=== PATIENT | male | born 1975 | race Caucasian/White ===

== ENCOUNTER 2021-12-16 11:13 | Emergency (ER) | payer OTHER, SELFPAY ==
--- NOTE | ~2021-12-16 | CT_ITS ---
EXAMINATION: CT SOFT TISSUE NECK WITH CONTRAST CLINICAL INFORMATION: Sore throat for 5 months. Hemoptysis. COMPARISON: Thyroid ultrasound from 06/11/2010. TECHNIQUE: Multidetector helical imaging was performed in the axial plane following the administration of 71 mL of Omnipaque 350 intravenous contrast (total utilized for concurrent CT chest and neck). Multiple axial reformats and coronal/sagittal reconstructions were created the technologist workstation for review. This CT examination was performed using dose optimization techniques as appropriate, variously including the following: *Automated exposure control. *Adjustment of mA and/or kV according to patient size (this includes techniques or standardized protocols for targeted exams where dose is matched to indication/reason for exam; i.e. extremities or head). *Use of iterative reconstruction technique. DLP: 1163 mGy-cm FINDINGS: No significant cutaneous thickening or subcutaneous inflammation. No discrete fluid collection within the deep tissues of the neck. The premaxillary, retromaxillary, pterygopalatine fossa, orbital apical, parapharyngeal, and prelaryngeal adipose tissue is maintained. Normal appearance of the parotid, submandibular, and thyroid glands. Scattered subcentimeter lymph nodes bilaterally, none of which are pathologically enlarged or abnormally enhancing. Beam hardening artifact from the patient's dental amalgam limits evaluation of the oropharynx. Within this limitation, there is no demonstrated focal lesion or abnormal enhancement within the intrinsic tissues of the tongue or floor of mouth. There is moderate prominence of the palatine tonsils bilaterally as well as the pharyngeal mucosa in the glossopharyngeal sulci (slightly more so on the left than the right). No definitively demonstrated focal lesion or collection. Normal mucosal contours of the larynx without abnormal enhancement. Normal appearance of the hyoid bone, thyroid cartilage, or cartilaginous trachea. The airways remains widely patent. No radiopaque foreign bodies. The atlantooccipital and atlantoaxial articulations remain well aligned. Straightening of the normal cervical lordosis. Otherwise, there is anatomic alignment of the vertebral bodies and posterior elements. No evidence of acute fracture or subluxation of the cervical spine. The vertebral body heights are maintained. Moderate degenerative disc disease from C2-C4 and C5-C7 with disc-osteophyte complex formation. Facet and uncovertebral joint arthropathy leads to osseous encroachment on the neural foramina from C2-C7. No evidence of epidural collection. There is no prevertebral soft tissue swelling. Normal opacification of the cervical arterial and venous structures. The visualized portion of the skull base is without significant abnormalities. Mild mucosal thickening the paranasal sinuses. The mastoid air cells and middle ear cavities are clear. No demonstrated significant periapical odontogenic disease. Moderate degenerative arthropathy of the temporomandibular joints. CT Upper Chest: The visualized lung apices and upper mediastinum are within normal limits. CT/CT soft tissue neck w con IMPRESSION: 1. Nonspecific mild prominence of the palatine tonsils and mucosal surfaces of the left greater than right glossotonsillar sulci. No definitively demonstrated discrete underlying lesion or collection. However, if clinically indicated, this could be further evaluated with direct endoscopic visualization. 2. No additional focal lesion, collection, pathologically enlarged adenopathy, or abnormal enhancement within the soft tissues of the neck.
--- NOTE | ~2021-12-16 | CT_ITS ---
EXAMINATION: CT ANGIOGRAM OF THE CHEST WITH AND WITHOUT CONTRAST (CT PULMONARY ANGIOGRAM FOR PE) CLINICAL INFORMATION: Reason for Exam hemoptysis, throat pain x5 months COMPARISON: Previous chest x-ray from earlier the same day TECHNIQUE: Prior to contrast administration, noncontrast localization images were obtained. Subsequently, multidetector volumetric imaging was performed from the thoracic inlet to below the diaphragms following the administration of 85 mL Omnipaque 350 intravenous contrast. No contrast reaction reported Sagittal, coronal, and MIP oblique sagittal reformatted images were obtained on the CT workstation, uploaded to PACS, and reviewed. This CT examination was performed using dose optimization techniques as appropriate, variously including the following: *Automated exposure control *Adjustment of mA and/or kV according to patient size (this includes techniques or standardized protocols for targeted exams where dose is matched to indication/reason for exam; i.e. extremities or head) *Use of iterative reconstruction technique Total exam dose-length product 569 mGy-cm FINDINGS: QUALITY OF STUDY/CONTRAST BOLUS: Satisfactory. PULMONARY ARTERIES: No central or segmental pulmonary emboli. THORACIC AORTA: No aneurysm or dissection. LUNG: No focal consolidation, nodules or masses. PLEURA: No pleural effusion or pneumothorax. Is a small left posterior medial diaphragmatic hernia containing fat. MEDIASTINUM: Normal heart size. No pericardial effusion. No hilar or mediastinal lymphadenopathy. No evidence of septal bowing or right heart strain. CHEST WALL/AXILLA: No axillary or internal mammary lymphadenopathy. OSSEOUS STRUCTURES: No acute or suspicious osseous abnormality. There are degenerative changes of the spine. UPPER ABDOMEN: Unremarkable. No reflux of contrast into the hepatic veins to suggest elevated right heart pressures. CT/CT angio chest PE protocol IMPRESSION: Unremarkable exam. No evidence of pulmonary embolism. VTE: negative
--- NOTE | ~2021-12-16 | XR_ITS ---
EXAMINATION: XR CHEST CLINICAL INFORMATION: Sore throat. Hemoptysis. COMPARISON: None TECHNIQUE: Frontal view of the chest was obtained. FINDINGS: The cardiac and mediastinal contours are normal. The lungs are clear. There is slight elevation of the right hemidiaphragm. There is no pleural effusion or pneumothorax. Visualized bony structures are unremarkable. XR/XR chest 1V IMPRESSION: Slightly elevated right hemidiaphragm otherwise unremarkable exam. If hemoptysis persists, follow-up chest CT or bronchoscopy should be considered.
[2021-12-16 11:18] VITALS: BP 141/82; PULSE 89; RESP 20; TEMP 36.3; O2SAT 96; BMI 29.8
--- NOTE | 2021-12-16 11:28 | ECG_ITS ---
Test Reason : SOB Blood Pressure : / mmHG Vent. Rate : 078 BPM Atrial Rate : 078 BPM P-R Int : 186 ms QRS Dur : 110 ms QT Int : 390 ms P-R-T Axes : 049 -06 020 degrees QTc Int : 444 ms Normal sinus rhythm Normal ECG When compared with ECG of 07-MAR-2014 21:16, No significant change was found Referred By: Generic ED Physician Electronically Signed By:Ammon Ziegler
[2021-12-16 11:45] LABS: MANUAL DIFF FLAG NO
[2021-12-16 11:47] LABS: Basophils Absolute Auto 0.1 X10*3/uL (0.0-0.2); Basophils Percent Auto 1.1 % (0-2); Eosinophils Absolute Auto 0.1 X10*3/uL (0.0-0.4); Eosinophils Percent Auto 1.6 % (0-4); Hematocrit 44.4 % (42.0-52.0); Hemoglobin 15.1 g/dl (14.0-18.0); Imm Gran Abs Auto 0.01 X10*3/uL (0.00-0.03); Imm Gran Pct Auto 0.2 % (0.0-0.4); Lymphocytes Absolute Auto 2.4 X10*3/uL (1.2-4.9); Lymphocytes Percent Auto 43.5 % (20-40); Mean Corpuscular Hemoglobin 28.9 pg (27.0-33.0); Mean Corpuscular Volume 84.9 fL (80.0-98.0); Mean Platelet Volume 8.9 fL (9.4-12.4); Monocytes Absolute Auto 0.4 X10*3/uL (0.1-1.2); Monocytes Percent Auto 7.3 % (2-11); Neutrophils Absolute Auto 2.5 x10*3/uL (2.0-8.3); Neutrophils Percent Auto 46.3 % (45-73); Platelet Count 233 X10*3/uL (160-400); Red Blood Count 5.23 X10*6/uL (4.60-5.80); Red Cell Distribution Width 13.6 % (11.0-16.0); White Blood Count 5.5 X10*3/uL (4.8-10.8)
[2021-12-16 11:59] LABS: D Dimer High Sensitivity < 150 NG/ML
[2021-12-16 12:02] LABS: Anion Gap 12 (12-20); Blood Urea Nitrogen 13 mg/dL (9-16); Calcium 9.7 mg/dL (8.4-10.2); Carbon Dioxide 28 mmol/L (22-29); Chloride 106 mmol/L (96-108); Creatinine Clr Calc Pharmacy 99.9; Estimated Glomerular Filt Rate > 60; Glucose Random 83 mg/dL (60-115); Potassium 4.1 mmol/L (3.3-5.1); Sodium 142 mmol/L (135-145)
[2021-12-16 12:09] LABS: Troponin-I High Sensitivity 19.5 ng/L (<3.5-35.0)
--- NOTE | 2021-12-16 14:23 | ED.GENADULT ---
HPI - General Adult General Chief complaint: General Medical Stated complaint: SOB/Coughing up blood Time Seen by Provider: 12/16/21 14:13 Source: patient Mode of arrival: ambulatory Limitations: no limitations History of Present Illness HPI narrative: 46 y/o male with history of migraines, hx aseptic meningitis, who presents to the ER with hemoptysis since yesterday. He reports sputum is bloody streaked that started yesterday and occurred again this morning. It also occurred 3-4 weeks ago and self resolved but was only small specks of blood. He described bright red blood in his sputum, no clots. Non-smoker. No personal or family history of PE or lung cancer. Patient also reports that he has had a sore throat for the last 5 months with discomfort in his neck when he burps and sometimes when he eats. No difficulty eating or drinking. No palpable mass. MD complaint: hemoptysis Onset (ago): week(s) Location: neck and chest Radiation: non-radiation Severity: mild Pain Consistency: intermittent and now resolved Relieving factors: none Exacerbating factors: none Associated symptoms: cough Related Data Previous Rx's Medication Instructions Recorded azithromycin 250 mg tablet See Rx Instructions .ROUTE 12/16/21 (Zithromax Z-Pj) .COMPLEX #6 tab Allergies Allergy/AdvReac Type Severity Reaction Status Date / Time No Known Allergies Allergy Unverified 05/22/20 16:14 [No Known Allergies*] Review of Systems Review of Systems: Constitutional: No Fever, No Chills ENT/Mouth: + sore throat, + Rhinorrhea, No Swallowing Difficulty Cardiovascular: No Chest Pain, + SOB, No Orthopnea, No Edema Respiratory: + Cough, No Sputum, No Wheezing, No dyspnea, + Hemoptysis Gastrointestinal: No Nausea, No Vomiting, No Diarrhea, No abdominal Pain, No Hematochezia, No Melena Genitourinary: No Hematuria Musculoskeletal: No joint pain, No Myalgias Skin: No Skin Lesions, No rash Neuro: No Weakness, No Numbness, No Dizziness, No Headache Psych: No Anxiety/Panic Heme/Lymph: No Bruising, No Lymphadenopathy PMFSH Past Medical History Medical History (Updated 12/16/21 @ 17:49 by TIFFANIE Morelos) Positive TB test Social History Social History Advance Directives: No Advance Directives Information Provided: No Physical Exam ED Vital Signs: Vital Signs - 24 hr 12/16/21 11:18 12/16/21 14:30 12/16/21 17:12 Temperature 97.3 F 98.3 F Pulse Rate 89 74 78 Respiratory Rate 20 17 17 Blood Pressure 141/82 H 143/92 H 139/86 Pulse Oximetry 96 97 99 BMI result Body Mass Index 29.8 Appearance: Alert. Oriented X3. No acute distress. Eyes: Pupils equal, round and reactive to light. ENT: Pharynx normal. No evidence of epistaxis. Neck: Normal inspection. Neck supple. CVS: Normal heart rate and rhythm. Pulses normal. Respiratory: No respiratory distress. Breath sounds normal. Abdomen: Soft and nontender. +BS x4 Skin: Skin warm and dry. Normal skin color. Normal skin turgor. No rashes. Extremities: No lower extremity edema. No calf tenderness. Neuro: Oriented X 3. No motor deficit. No sensory deficit. Course Course Course Narrative: 46-year-old male presenting to the ER with intermittent hemoptysis for the last couple of weeks. Recurrence again started yesterday with worsening symptoms including mild shortness of breath as well. He also has sore throat for the last 5 months. He has no lung cancer risk factors and no PE risk factors. He is not tachycardic or hypoxic. He has no gross or massive hemoptysis here. None in the last several hours. Will get labs and CT scans for further evaluation. Reevaluation(s) Reevaluation #1: CTA is negative for PE or pulmonary consolidation. Awaiting read on CT soft tissue neck - [facility] in [place] called and will post results now. Procedures EJ/Peripheral Line Arm R: Time Out Performed: No Skin Cleansed in Sterile Fashion: Yes Size (gauge): 20 IV Secured and Dressing Applied: Yes Patient Tolerated Procedure: well and no complications Medical Decision Making Lab Data Result diagrams: 12/16/21 11:36 12/16/21 11:36 Labs: Lab Results 12/16/21 12/16/21 12/16/21 Range/Units 11:36 11:36 11:36 WBC 5.5 (4.8-10.8) X10*3/uL RBC 5.23 (4.60-5.80) X10*6/uL Hgb 15.1 (14.0-18.0) g/dl Hct 44.4 (42.0-52.0) % MCV 84.9 (80.0-98.0) fL MCH 28.9 (27.0-33.0) pg MCHC 34.0 (31.0-36.0) g/dl RDW 13.6 (11.0-16.0) % Plt Count 233 (160-400) X10*3/uL MPV 8.9 L (9.4-12.4) fL Immature Gran % (Auto) 0.2 (0.0-0.4) % Neut % (Auto) 46.3 (45-73) % Lymph % (Auto) 43.5 H (20-40) % [place] % (Auto) 7.3 (2-11) % Eos % (Auto) 1.6 (0-4) % Baso % (Auto) 1.1 (0-2) % Lymph # (Auto) 2.4 (1.2-4.9) X10*3/uL [place] # (Auto) 0.4 (0.1-1.2) X10*3/uL Eos # (Auto) 0.1 (0.0-0.4) X10*3/uL Baso # (Auto) 0.1 (0.0-0.2) X10*3/uL Abs Immat Gran (auto) 0.01 (0.00-0.03) X10*3/uL Absolute Neuts (auto) 2.5 (2.0-8.3) x10*3/uL Absolute Nucleated RBC 0.000 (0.0-0.012) X10*3/uL Nucleated RBC % (auto) 0.0 (0.0-0.2) /100WBC D-Dimer High Sensitivty NG/ML Sodium 142 (135-145) mmol/L Potassium 4.1 (3.3-5.1) mmol/L Chloride 106 (96-108) mmol/L Carbon Dioxide 28 (22-29) mmol/L Anion Gap 12 (12-20) BUN 13 (9-16) mg/dL Creatinine 1.13 (0.5-1.4) mg/dL Estim Creat Clear Calc 99.9 Estimated GFR > 60 Random Glucose 83 (60-115) mg/dL Calcium 9.7 (8.4-10.2) mg/dL Troponin I High Sens 19.5 (<3.5-35.0) ng/L 12/16/21 Range/Units 11:36 WBC (4.8-10.8) X10*3/uL RBC (4.60-5.80) X10*6/uL Hgb (14.0-18.0) g/dl Hct (42.0-52.0) % MCV (80.0-98.0) fL MCH (27.0-33.0) pg MCHC (31.0-36.0) g/dl RDW (11.0-16.0) % Plt Count (160-400) X10*3/uL MPV (9.4-12.4) fL Immature Gran % (Auto) (0.0-0.4) % Neut % (Auto) (45-73) % Lymph % (Auto) (20-40) % [place] % (Auto) (2-11) % Eos % (Auto) (0-4) % Baso % (Auto) (0-2) % Lymph # (Auto) (1.2-4.9) X10*3/uL [place] # (Auto) (0.1-1.2) X10*3/uL Eos # (Auto) (0.0-0.4) X10*3/uL Baso # (Auto) (0.0-0.2) X10*3/uL Abs Immat Gran (auto) (0.00-0.03) X10*3/uL Absolute Neuts (auto) (2.0-8.3) x10*3/uL Absolute Nucleated RBC (0.0-0.012) X10*3/uL Nucleated RBC % (auto) (0.0-0.2) /100WBC D-Dimer High Sensitivty < 150 NG/ML Sodium (135-145) mmol/L Potassium (3.3-5.1) mmol/L Chloride (96-108) mmol/L Carbon Dioxide (22-29) mmol/L Anion Gap (12-20) BUN (9-16) mg/dL Creatinine (0.5-1.4) mg/dL Estim Creat Clear Calc Estimated GFR Random Glucose (60-115) mg/dL Calcium (8.4-10.2) mg/dL Troponin I High Sens (<3.5-35.0) ng/L Critical Care Time Critical Care Time Critical Care Time: No Discharge Plan Discharge Clinical Impression: Bronchitis, Hemoptysis Patient Disposition: Home, Self-Care Instructions: Acute Bronchitis (ED), Hemoptysis (ED) Additional Instructions: The CT scan of your lungs today did not show any blood clots or lesions. Take the prescribed antibiotic for acute bronchitis as this may be what is causing your bloody sputum. Recommend adding a humidifier to your bedroom at night. Follow up with your doctor as well as Pulmonology if bloody sputum persists. Name and number below. Prescriptions: New azithromycin [Zithromax Z-Pj] 250 mg tablet See Rx Instructions .ROUTE .COMPLEX Qty: 6 0RF Rx Instructions: take 500 mg today (day 1), then 250 mg for 4 days (days 2-5) Referrals: Malika Fontenot MD [Physician] - 1 week (intermittent hemoptysis, CTA negative. ) Stand Alone Forms: Work/School Release
[2021-12-16 14:30] VITALS: BP 143/92; PULSE 74; RESP 17; O2SAT 97
[2021-12-16] MEDS: iohexoL 350 MG/ML 100 ML INFUS..BTL IV (16:47)
[2021-12-16 17:12] VITALS: BP 139/86; PULSE 78; RESP 17; TEMP 36.8; O2SAT 99
== END 2021-12-16 19:17 | disposition home or self-care (01) ==
PROVIDERS: Emergency Provider Emergency Medicine; PCP Internal Medicine
DX: J40 Bronchitis, not specified as acute or chronic (principal); R06.02 Shortness of breath; R05.9 Cough, unspecified; R04.2 Hemoptysis; Z79.899 Other long term (current) drug therapy
CPT/HCPCS: 36415; 70491; 71045; 71275; 80048; 84484; 85025; 85379; 93005; 99284; Q9967

== ENCOUNTER 2022-02-02 09:15 | Outpatient (REF) | payer OTHER, SELFPAY ==
[2022-02-02 11:20] LABS: TSH reflex Free T4 0.85 uIU/mL (0.32-4.0)
[2022-02-02 11:26] LABS: Erythrocyte Sedimentation Rate 4 MM/HR (0-15)
[2022-02-03 15:37] LABS: Anti Nuclear Antibody Screen NEGATIVE (NEGATIVE)
[2022-02-04 23:06] LABS: Cyclic Citrullinated Peptide <16 UNITS
[2022-02-15 08:42] LABS: SARS COV2 IgG Negative
== END 2022-02-02 09:16 | disposition home or self-care (01) ==
LOC: HO.LAB 09:15
PROVIDERS: PCP Internal Medicine; Visit Provider Hospitalist
DX: R00.0 Tachycardia, unspecified (principal); R06.00 Dyspnea, unspecified; R07.89 Other chest pain; G47.33 Obstructive sleep apnea (adult) (pediatric); R04.2 Hemoptysis; K21.9 Gastro-esophageal reflux disease without esophagitis; J44.9 Chronic obstructive pulmonary disease, unspecified
CPT/HCPCS: 36415; 82785; 84443; 85652; 86003; 86038; 86039; 86200; 86769; 94618; 99202

== ENCOUNTER 2022-03-18 09:21 | Outpatient (REF) | payer OTHER, SELFPAY ==
--- NOTE | ~2022-03-18 | FL_ITS ---
EXAMINATION: FL BARIUM SWALLOW CLINICAL INFORMATION: K21.9 - Gastro-esophageal reflux disease without esophagitis COMPARISON: CT soft tissue neck and CTA chest 12/16/2021. TECHNIQUE: Barium swallow examination is performed using fluoroscopic evaluation in addition to multiple fluoroscopic spot views, including cine images during swallowing. The patient is imaged both upright and prone and using both thick and thin sulfate along with effervescent granules. Fluoroscopy time: 0.9 minutes DAP: 6.456 Gycm2 Images: 24 FINDINGS: Swallowing function is normal and there is no aspiration. The cervical esophagus has no web or diverticulum or stricture. The cervical thoracic junction appears normal. The thoracic esophagus shows normal motility with no obstruction, stricture, or ulceration. There is no hiatal hernia or reflux seen despite use of provocative maneuvers (prone Valsalva and water siphon test, respectively). A cursory view of the upper abdomen shows no gastric outlet obstruction. FL/FL barium swallow IMPRESSION: Normal study.
== END 2022-03-18 09:22 | disposition home or self-care (01) ==
LOC: HO.XRAY 09:21
PROVIDERS: PCP Internal Medicine; Visit Provider Hospitalist
DX: K21.9 Gastro-esophageal reflux disease without esophagitis (principal)
CPT/HCPCS: 74220

== ENCOUNTER → 2022-03-23 14:26 | Outpatient (BNVA) | payer OTHER, SELFPAY | PROVIDERS: PCP Internal Medicine; Visit Provider Hospitalist | DX: R04.2 Hemoptysis (principal); R06.00 Dyspnea, unspecified; J02.9 Acute pharyngitis, unspecified; R07.89 Other chest pain; G47.33 Obstructive sleep apnea (adult) (pediatric); R00.0 Tachycardia, unspecified; J44.9 Chronic obstructive pulmonary disease, unspecified | CPT/HCPCS: 99212 ==

== ENCOUNTER 2022-04-27 10:00 | Outpatient (REF) | payer OTHER, SELFPAY ==
--- NOTE | 2022-04-27 15:12 | PFT_ITS ---
Forced vital capacity 89%, FEV1 85%. FEV1/FVC ratio is 75. FEF 1975 74% and MVV 87%. Postbronchodilator therapy, there is slight improvement in [id number]. Total lung capacity 93%. Residual volume 84%. Diffusion capacity 85%. CONCLUSION: Normal pulmonary function test, and there is no evidence of any obstructive or restrictive pulmonary disorder. Clinical correlation is recommended. MD TORIN Monge/ABIDA / [id number]
== END 2022-04-27 10:01 | disposition home or self-care (01) ==
LOC: HO.RESP 10:00
PROVIDERS: PCP Internal Medicine; Visit Provider Hospitalist
DX: R06.00 Dyspnea, unspecified (principal)
CPT/HCPCS: 94060; 94727; 94729

== ENCOUNTER → 2022-05-06 10:56 | Outpatient (REF) | payer OTHER, SELFPAY | LOC: HO.SL 10:56 | PROVIDERS: PCP Internal Medicine; Visit Provider Hospitalist | DX: G47.33 Obstructive sleep apnea (adult) (pediatric) (principal) | CPT/HCPCS: 95806 ==

== ENCOUNTER → 2022-07-06 13:07 | Outpatient (BNVA) | payer OTHER, SELFPAY | PROVIDERS: PCP Internal Medicine; Referring Provider Internal Medicine; Visit Provider Internal Medicine | DX: R06.02 Shortness of breath (principal); R07.89 Other chest pain; G47.33 Obstructive sleep apnea (adult) (pediatric) | CPT/HCPCS: 93005; 99202 ==

== ENCOUNTER → 2022-07-19 08:30 | Outpatient (REF) | payer OTHER, SELFPAY ==
--- NOTE | 2022-07-19 08:33 | CA_ITS ---
Transthoracic Echocardiogram Patient (Last, First, Middle): Juan Carlos Charles P Gender: Male Date of : 1975 Age: 46 Procedure Date: 07/19/2022 Procedure Type: Transthoracic Echocardiogram Location: OP Height: 182.88 cm Weight: 97.98 kg BSA: 2.20 m2 Heart Rate: bpm BP: 122 / 70 mmHg Grave Cleaner: Referring MD: Haris Day MD Bath Steward: Donald Mora MD Symptoms: R07.89 - Other chest pain Study Quality: Adequate ECG Rhythm: Sinus Conclusions: - Essentially normal study Findings Left Ventricle Normal left ventricular size, thickness, and systolic function. The visually estimated ejection fraction is between 55-60%. Diastolic function is normal for age. Right Ventricle Normal right ventricular cavity size and systolic function. Atria Both atria are normal in size. Interatrial shunt cannot be excluded. Aortic Valve Normal aortic valve structure and function. There is no aortic valve stenosis. There is no aortic valve regurgitation. Mitral Valve Normal mitral valve structure and function. There is trace mitral valve regurgitation. There is no mitral valve stenosis. Pulmonic Valve The pulmonic valve is likely normal. There is trace pulmonic valve regurgitation. Tricuspid Valve Normal tricuspid valve structure. There is trace tricuspid valve regurgitation. The right ventricular systolic pressure is normal. The right ventricular systolic pressure is 16 mmHg. Normal right atrial pressure. There is no evidence of pulmonary hypertension. Great Vessels All visible segments of the aorta are normal in size. The pulmonary artery was not well visualized. Venous The inferior vena cava is normal in size and collapses greater than 50% with inspiration. Pericardium/Pleural There is no evidence of pericardial effusion. Prior Study Comparison No prior study available for comparison. Recommendations, Care & Conclusions Recommend contrast study to evaluate intracardiac shunting. Measurements 2D Linear Measurements IVSd: 1.24 0.6-0.9/0.6-1.0 cm LVIDd: 5.03 3.9-5.3/4.2-5.9 cm LVIDd Index: 2.29 2.4-3.2/2.2-3.1 cm/m2 LVIDs: 2.92 2.0-3.6 cm LVPWd: 1.15 0.7-1.1 cm Ao Root: 3.30 2.1-3.5 cm LA Diam: 4.70 2.7-3.8/3.0-4.0 cm LAIDs Index: 2.14 1.5-2.3 cm/m2 LV Mass: 292.51 67-162/88-224 g LV Mass Index: 132.96 43-95/49-115 g/m2 LVOT Diam: 2.70 3.0+(-)1.3 cm 2D Systolic Function EF 4C: 53.10 >55% EF 2C: 61.20 >55% EF BiP: 56.90 >55% Mitral Valve MV Pk E: 0.49 MV PK A: 0.59 MV Decel Time: 163.00 E/A: 0.80 E'Lateral: 10.00 E'Medial: 7.72 E/E' Med: 6.30 E/E' Lat: 4.90 PHT: 48.00 MVA PHT: 4.58 Decel [place]: 3.01 Aortic Valve AoV Pk Tom: 1.29 AoV Mn Tom: 0.93 AoV VTI: 0.30 AoV Pk Grad: 7.00 Aov Mn Grad: 4.00 NATALIE Cont.VTI: 4.17 LVOT LVOT Pk Tom: 0.91 LVOT Mn Tom: 0.62 LVOT VTI: 0.22 LVOT Pk Grad: 3.00 LVOT Mn Grad: 2.00 LVOT Diam: 2.70 LVOT Area: 5.73 Diastolic Function MV Pk E: 0.49 MV Pk A: 0.59 E/A: 0.80 E'Medial: 7.72 E/E' Med: 6.30 E' Laterial: 10.00 E/E' Lat: 4.90 Right Ventricle TAPSE (mm): 27.20 TVS' Tom: 10.80 Tricuspid Valve TR Pk Tom: 1.81 TR Pk Grad: 13.00 RA Press: 3.00 RVSP: 16.00 Great Vessels Aorta Ao Root-2D: 3.30 2.0-3.7 cm Ao Asc: 2.80 2.1-3.4 cm Pulmonary Valve PV Pk Tom: 1.02 Peak PV Grad: 4.00 Updated in Other Vendor System with Status of Final Donald Mora MD electronically signed on 07/19/2022 5:50:10 PM with status of Final
== END ==
LOC: HO.CARD 08:30
PROVIDERS: PCP Internal Medicine; Visit Provider Internal Medicine
DX: R07.89 Other chest pain (principal)
CPT/HCPCS: 93306

== ENCOUNTER → 2022-09-21 14:11 | Outpatient (BNVA) | payer OTHER, SELFPAY | PROVIDERS: PCP Internal Medicine; Referring Provider Internal Medicine; Visit Provider Nurse Practitioner Family | DX: R06.02 Shortness of breath (principal); R07.89 Other chest pain | CPT/HCPCS: 99212 ==

== ENCOUNTER 2023-04-29 15:31 | Outpatient (AMB) | payer OTHER, SELFPAY ==
[2023-04-29 15:36] VITALS: PULSE 66; O2SAT 96; BMI 29.8
--- NOTE | 2023-04-29 15:36 | A.OFFVIS_ITS ---
Intake Vital Signs 04/29/23 15:36 Height 6 ft Weight 220 lb BMI 29.8 Pulse 66 Pulse Source Pulse Oximeter Pulse Oximetry (%) 96 Oxygen Delivery Method Room Air Intake Visit Reasons: Sleep Apnia / CPAP [employer] Assistant Required: No Allergies No Known Allergies [No Known Allergies*] Allergy (Verified 04/29/23 15:37) HPI HPI Comments History of Present Illness Details The patient is a 47-year-old gentleman with a known history of gastroesophageal reflux disease who apparently has been developing worsening shortness of breath and cough for the last year so. He has been evaluated for this condition. Apparently he did go to [place] where he did undergo pulmonary function studies. unfortunately, I do not have those results. The patient states that per report of what he was told there were borderline normal. In the meantime he continues to have significant dyspnea on exertion. He is in [place] [employer]. He is concerned because he has a hard time even walking half a mi because of the significant shortness of breath that is moderate severity. He also gets short of breath she is going up a flight of stairs. In addition to that he does describes chest pressure. He is wondering if he has asthma or if he will benefit from inhaler. Far as cardiac workup the patient states that more than 5 years ago he then underwent a stress test at [facility]. The patient has not had any recent evaluation. Further questioning he does have significant daytime drowsiness. His [place] score is elevated 12/24. His documented significant snoring and apneic episodes. The is concerned about his breathing at nighttime. The patient has not had a sleep study. Ultimately more recently the patient did developed significant sore throat and also coughing up blood. Happened few times and he was concerned so therefore he went to the [facility] ED. There he did undergo CT scan of the chest demonstrating no acute disease although his lungs appear to be hypo expanded and he did undergo a soft tissue neck CT scan demonstrating prominence of the tissues suggesting some degree of inflammation. The patient has not had an ENT evaluation. During the visit we did go for a 6 minute walk test. He did desaturate briefly down to 91% and his heart rate was above 100 throughout the ambulation up to 116 beats per minute. The patient did complaint of the heaviness in the chest area. He is also complaining or sore throat. He does take Nexium for the reflux disease. We did spend time talking about the reflux diet which seems to be an issue. At this point will consider promotility agents to help him with the reflux disease family be contributing to a lot of his symptoms. 03/23/2022 the patient is here for a pulmonary follow-up visit. He continues to be the same. Complaining of dyspnea on exertion [id number] severity. Although he denies any further hemoptysis. He still has oxygen sedation in his throat. Feels like he has a irritation or a growth. We did perform a barium swallow to see if there is any evidence of any abnormalities with his esophagus or in the proximal area. But, it appeared to be normal which is reassuring. Patient also use the short-acting beta agonist which appeared to be helpful but sometimes he was forgets to use it specially if he had to exercise. In view of his ongoing respiratory symptoms and a partial improvement with short-acting beta agonist will go ahead and switch him over to a combination inhaler. He will do well with Symbicort. Therefore I will send to the pharmacy. The patient also needs to undergo pulmonary function studies to address his respiratory capacity limitations. He also has daytime drowsiness with an elevated [place] score of 11/24. It was an issue scheduling his sleep study and it should be scheduled in the coming days. Again we looked at his CT scan of t he chest and no real abnormalities. the patient will benefit from an ENT evaluation though to further visualize the upper respiratory tract. 05/17/2022 the patient has a telephone visit today. The patient continues to be about the same. Continues to have some dyspnea on exertion. I did prescribe the Symbicort however it was never available at the pharmacy based on the fact that it was not covered. It is not clear when he did an get An alternative. I will send him Advair at this time. Appears that is covered. We can start using the the same way. He knows to rinse his mouth after he uses it. He continues to have daytime drowsiness. His [place] score is elevated 11/24. We did review his home sleep study. His AHI is were elevated to 23 events an hour consistent moderate to severe MIKE. The patient also has significant hypoxia with. Patient needs to start CPAP therapy [facility]. Will make arrangements with local [employer] company in order to do so. For his next visit he is going to bring his CPAP with him. go back to 04/29/2023 The patient is here for a pulmonary follow up visit. Doing very well with the APAP. Based on his download he does use it every night, more than 4 hours. HIs AHI is down to 1-2. The mask leakage is an issue. He has tried multiple masks and they still leak. I did provide him an airtouch f20 foam mask to try/ seem to fit well. He will continue the APAP as the therapy has been very effective and beneficial. Also, he had a fall at a pool hurting his ribs on the right side. moderate in seveirity worsened with coughing and deep breathing. He went to an urgent care and rib series was negative. I explained to him that still could have a small fx or bone contusion. He will continue the motrin and start lidoderm patch. If the pain worsens he is to call the office and/or seek urgent medical advice. If he is no better in the next 1 week her can also call to reassess. [facility] Medical History Chest pressure Dyspnea Hemoptysis Positive TB test Tachycardia Surgical History S/P correction of deviated nasal septum [place] teeth removed Family History Mother Arthritis Father No problems noted. Sister No problems noted. Social History Alcohol intake: current Alcohol intake frequency: a few times a month Patient Tobacco Use Status: Never used Tobacco Review of Systems Const Denies daytime sleepiness, Denies snoring and Denies stops breathing during sleep Eyes Denies change in vision ENT Reports sore throat and Reports throat swelling Card Reports chest pain, Denies dyspnea and Reports dyspnea on exertion Resp Denies cough, Denies hemoptysis, Reports pain on inspiration, Reports pain with cough, Denies dyspnea, Reports dyspnea on exertion, Denies snoring and Denies wheezing GI Reports dyspepsia and Reports heartburn Musc Reports no additional complaints Skin/Breast Denies rash Neuro Reports no additional complaints Aller/Immun Reports throat swelling and Denies wheezing Physical Exam Vital Signs: Last Vital Signs Pulse 66 08/25/23 15:36 Pulse Ox 96 04/29/23 15:36 Oxygen Delivery Method Room Air 04/29/23 15:36 BMI result Body Mass Index 29.8 Const General: alert Neck Neck: Yes normal visual inspection, Yes full ROM and Yes no lymphadenopathy Chest Chest palpation & inspection: tenderness rib (right side) Resp Auscultation: diminished lung sounds Cardio Rate: regular rate Rhythm: regular rhythm Heart sounds: S1 normal heart sound present and S2 normal heart sound present GI Palpation (GI): Soft to palpation and nontender Auscultation: normal bowel sounds Skin General skin exam: rashes and/or lesions noted Assessment & Plan Assessment & Plan (1) MIKE (obstructive sleep apnea): Code(s): G47.33 - Obstructive sleep apnea (adult) (pediatric) (2) Chest pain: Comment: due to trauma/fall Code(s): R07.9 - Chest pain, unspecified Plan continue Advair Reflux diet continue PPI continue APAP trial F20 airtouch mask-med lidoderm patch, will call if no better in 1 week F/U 12 months Medications: New lidocaine 5% (Lidoderm) leave on most painful area for up to 12 hrs 1 patch topical DAILY 30 days 30 ea 4RF G89.12 - Acute post-thoracotomy pain Coding Level of Care Code Est Pt Level 4 (01162) Diagnoses MIKE (obstructive sleep apnea) G47.33 Chest pain R07.9 Time Spent (min) 20
== END 2023-04-29 15:54 | disposition home or self-care (01) ==
PROVIDERS: PCP Internal Medicine; Visit Provider Hospitalist
DX: G47.33 Obstructive sleep apnea (adult) (pediatric) (principal); R07.9 Chest pain, unspecified
CPT/HCPCS: 99214

== ENCOUNTER → 2023-04-29 15:31 | Outpatient (BNVA) | payer OTHER, SELFPAY | PROVIDERS: PCP Internal Medicine; Visit Provider Hospitalist | DX: G47.33 Obstructive sleep apnea (adult) (pediatric) (principal); R07.9 Chest pain, unspecified; Z79.899 Other long term (current) drug therapy | CPT/HCPCS: 99212 ==

== ENCOUNTER 2024-02-07 08:47 | Outpatient (REF) | payer OTHER, SELFPAY | END 2024-02-07 08:48 | disposition home or self-care (01) | LOC: HO.SH 08:47 | PROVIDERS: Visit Provider Nurse Practitioner Family | DX: H93.13 Tinnitus, bilateral (principal); H91.93 Unspecified hearing loss, bilateral | CPT/HCPCS: 92557; 92567 ==

== ENCOUNTER 2025-01-14 15:11 | Outpatient (REF) | payer OTHER, SELFPAY ==
--- OUTSIDE RECORDS SUMMARY | 2025-01-14 15:17 | XMS_ITS | Clinical Summary ---
Author Organization [facility] [address] [facility] Address [address] [place] [phone] Phone Care Team Providers Care Scaffold Erector Name Role Phone Damon Jha MD Primary Care Provider [phone] Allergies Active Allergy Reactions Criticality Noted Date Comments Other 04/28/2021 Seasonal Medications ibuprofen (ADVIL,MOTRIN) 600 mg tablet Take 1 tablet (600 mg total) by mouth every 6 (six) hours if needed (Pain). 4 Active diclofenac (VOLTAREN) 1 % topical gel Apply 4 g topically 2 (two) times a day. 4 Active oxyCODONE (ROXICODONE) 5 mg immediate release tablet Take 1 tablet (5 mg total) by mouth every 4 (four) hours if needed (Pain). 4 Active sertraline (ZOLOFT) 100 mg tablet Take 1 tablet (100 mg total) by mouth 1 (one) time each day. 90 tablet 1 5 01/22/20 25 Active Active Problems Problem Noted Date Diagnosed Date Viral meningitis 08/14/2024 Overview (08/14/2024): 02/2014 Migraine 08/14/2024 Prediabetes 05/24/2024 MIKE on CPAP 05/16/2023 Anxiety 05/16/2023 Cervical disc herniation 02/03/2023 Obesity (BMI 30.0-34.9) 04/28/2021 Encounters Date Type Department Care Team Description 11/22/2024 3:30 PM EDT Office Visit Adult Medicine [address] [phone] Damon Jha MD Anxiety (Primary Dx); Hypercholesterolemia; Prediabetes; Other fatigue; History of radiation exposure; Nonintractable headache, unspecified chronicity pattern, unspecified headache type from Last 3 Months Immunizations Name Administration Dates Next Due Influenza Quadravalent, MDCK , 0.5ml, preservative free (Flucelvax) 6mo and older 05/16/2023 Influenza trivalent, 0.5mL, preservative free (Fluarix; FluLaval; Fluzone) ages 6mo and older (Afluria) 3 years and older 05/24/2024,05/20/2021 Moderna SARS-CoV-2 COVID-19, mRNA, LNP-S, preservative free 10/31/2020,09/29/2020 Surgical History Surgery Date Site/Laterality Comments OTHER SURGICAL HISTORY PROCEDURE: [place] OPEN TX NASAL FX W/CONCOMITANT OPTX FXD SEPTUM WISDOM TOOTH EXTRACTION PROCEDURE: HISTORICAL WISDOM TEETH EXTRACTION COLONOSCOPY 04/17/2020 PROCEDURE: HISTORICAL COLONOSCOPY; COMMENT: Minimal diverticulosis, no polyps. Repeat in 10 years. Medical History Medical History Date Comments Migraine DX:Migraine Viral meningitis DX:Viral mening itis; COMMENT: 02/2014 Family History Medical History Relation Name Comments Heart attack Maternal Grandfather Breast cancer Maternal Grandmother Diabetes Maternal Grandmother Colon polyps Mother Younger than 50 Hypertension Mother Lung cancer Paternal Grandmother Colon polyps Sister Younger than 50 Relation Name Status Comments Maternal Grandfather Maternal Grandmother Mother Paternal Grandmother Sister Social History Tobacco Use Types Packs/Day Years Used Date Smoking Tobacco: Never Smokeless Tobacco: Never Alcohol Use Standard Drinks/Week Comments Yes 0 (1 standard drink = 0.6 oz pur e alcohol) Housing Instability Answer Date Recorde d Are you worried that in the next 2 months you may not have stable housing? No 11/22/2024 Food Access & Nutrition Answer Date Rec orded Do you have access to a vari ety of food including fruits and vegetables? Yes 11/22/2024 Access to Healthcare Answer Date Record ed Within the last 3 months, ho w many times did you visit the emergency department for your medical care? 0 11/22/2024 Health Literacy Answer Date Recorded How often do you need to hav e someone help you when you read instructions, pamphlets, or other written material from your doctor or pharmacy? Never 11/22/2024 Caregiver: How often do you need to have someone help you when you read instructions, pamphlets, or other written material from your doctor or pharmacy? Not on file 11/22/2024 Financial Risk Answer Date Recorded How hard is it for you to pa y for the very basics like food, housing, medical care, and air conditioning / heating? Not asked 11/22/2024 Transportation Answer Date Recorded Has the lack of transportati on kept you from meetings, work, or from getting things needed for daily living? No Has the lack of transportati on kept you from medical appointments or from getting medications? No 11/22/2024 Social Isolation Answer Date Recorded How often do you feel lonely or isolated from th ose around you? Never 11/22/2024 Food Risk Answer Date Recorded Within the past 12 months we worried whether our food would run out before we got money to buy more. Not asked 11/22/2024 Within the past 12 months th e food we bought just didn't last and we didn't have money to get more. Not asked 11/22/2024 Dependent Care Answer Date Recorded Do you need help finding or paying for care for your loved ones. For example, child health associate or elderly care for an older adult? No 11/22/2024 Education Answer Date Recorded Do you think completing more education or training, like finishing a GED, going to college, or learning a trade, would be helpful for you? N/A 11/22/2024 Employment and Income Answer Date Recor ded During the last four weeks, have you been actively looking for work? No 11/22/2024 Living Situation Answer Date Recorded What is your living situation? 0 11/22/2024 Sex and Gender Information Value Date Recorded Sex Assigned at Not on file Legal Sex Male 6:44 PM EST Gender Identity Not on file Sexual Orientation Not on file Obstetrics History Last Filed Vital Signs Vital Sign Reading Time Taken Comments Blood Pressure 116/88 11/22/2024 3:30 PM EDT Pulse 89 11/22/2024 3:30 PM EDT Temperature 36.5 ??C (97.7 ??F) 11/22/2024 3:30 PM ED T Respiratory Rate 19 11/22/2024 3:30 PM EDT Oxygen Saturation 97% 11/22/2024 3:30 PM EDT Inhaled Oxygen Concentration - - Weight 106 kg (233 lb) 11/22/2024 3:30 PM EDT Height 182.9 cm (6' 0.01 ) 11/22/2024 3:30 PM ED T Body Mass Index 31.59 11/22/2024 3:30 PM EDT Plan of Treatment Upcoming Encounters Date Type Department Care Team (Late st Contact Info) Description 07/09/2025 2:00 PM EST Office Visit Adult Medicine [facility] [address] [place] [phone] Damon Jha MD [address] [place] [address] Health Maintenance Due Date Last Done Comments IPV Vaccines (2 of 3 - Adult catch-up series) 06/12/1999 05/15/1999 HIV Screening 08/14/2022 Hepatitis C Screening 08/14/2022 COVID-19 Vaccine (5 - 2023- season) 2024 06/03/2022, 07/27/2021, 10/31/2020, Additional history exists Depression Screening 11/22/2025 11/22/2024 Social Influencers of Health Screening 11/22/2025 11/22/2024 DTaP,Tdap,and Td Vaccines (5 - Td or Tdap) 05/11/2029 05/11/2019, 05/17/2009, 09/05/2006, Additional history exists Cholesterol Screening (Lipid Panel) 11/23/2029 11/23/2024, 05/24/2024, 05/24/2024 Colorectal Cancer Screening: Colonoscopy 04/17/2030 04/17/2020 Hepatitis A Vaccines Aged Out 02/28/2002, 06/26/20 No longer eligible based on patient's age to complete this topic Hepatitis B Vaccines Completed 12/27/2002, 04/05/2002, 02/28/2002 Meningococcal ACWY Vaccine Aged Out 01/16/2007, No longer eligible based on patient's age to complete this topic Influenza Vaccine Completed 05/24/2024, , 06/09/2022, Additional history exists HIB Vaccines Aged Out No longer eligi ble based on patient's age to complete this topic HPV Vaccines Aged Out No longer eligi ble based on patient's age to complete this topic MMR Vaccines Aged Out No longer eligi ble based on patient's age to complete this topic Meningococcal B Vaccine Aged Out No l onger eligible based on patient's age to complete this topic Pneumococcal Vaccine: Pediatrics (0 to 5 Years) and At-Risk Patients (6 to 64 Years) Aged Out No longer eligible based on patient's age to complete this topic RSV Immunization Patients Under 20 months Aged Out No longer eligible based on patient's age to complete this topic Varicella Vaccines Aged Out No longer eligible based on patient's age to complete this topic Procedures Procedure Name Priority Date/Time Associated Diagnosis Comments CBC WITH AUTO DIFFERENTIAL Routine 11/23/2024 8:15 AM EDT Other fatigue HEMOGLOBIN A1C Routine 11/23/2024 8:15 AM EDT Prediabetes LIPID PANEL WITH REFLEX TO DIRECT LDL Routine 11/23/2024 8:15 AM EDT Hypercholesterolem ia COMPREHENSIVE METABOLIC PANEL Routine 11/23/2024 8:15 AM EDT Hypercholesterolem ia Prediabetes CBC AND DIFFERENTIAL Routine 11/23/2024 8:15 AM EDT Other fatigue THYROID STIMULATING HORMONE WITH REFLEX TO FREE T4 AND FREE T3 Routine 11/23/2024 8:15 AM EDT Other fatigue TESTOSTERONE, TOTAL Routine 11/23/2024 8 :15 AM EDT Other fatigue HM COLONOSCOPY Routine 04/17/2020 from Last 3 Months or Most Recently Relevant to Health Maintenance Results * Thyroid stimulating hormone with reflex to free t4 and free t3 (11/23/2024 8:15 AM EDT) TSH 1.29 0.40 - 4.00 mcIU/mL LAB CHEMISTRY METHOD 11/23/2024 12:53 PM EDT [facility] Blood Venous blood specimen / Unknown Venipuncture / Unknown 11/23/2024 8:15 AM EDT 11/23/2024 8:15 AM EDT us Damon Jha MD LAB BLOOD ORDERABLES Final Resu lt [facility] [address] [place] [address], [place] [phone] * (ABNORMAL) Lipid panel with reflex to direct LDL (11/23/2024 8:15 AM EDT) Cholesterol 210(H) 0 - 200 mg/dL LAB CHEMISTRY METHOD 11/23/2024 12:22 PM EDT [facility] Triglycerides 134 0 - 150 mg/dL LAB CHEMISTRY METHOD 11/23/2024 12:22 PM EDT [facility] HDL 40 >=40 mg/dL LAB CHEMISTRY METHOD 11/23/2024 12:22 PM EDT [facility] LDL Calculated 143(H) 0 - 100 mg/dL LAB CHEMISTRY METHOD 11/23/2024 12:22 PM T [facility] VLDL Cholesterol Huseyin 26.8 mg/dL LAB CHEMISTRY METHOD 11/23/2024 12:22 PM EDT [facility] Non HDL Chol. (LDL+VLDL) 170(H) <145 mg/dL LAB CHEMISTRY METHOD 11/23/2024 12:22 PM EDT [facility] Chol/HDL Ratio 5.3(H) 0.0 - 4.4 LAB CHEMISTRY METHOD 11/23/2024 12:22 PM [facility] Blood Venous blood specimen / Unknown Venipuncture / Unknown 11/23/2024 8:15 AM EDT 11/23/2024 8:15 AM EDT us Damon Jha MD LAB BLOOD ORDERABLES Final Resu lt [facility] [address] [place] [address], * CBC auto differential (11/23/2024 8:15 AM EDT) WBC 6.2 4.8 - 10.8 K/mcL LAB HEMETOLOGY METHOD 11/23/2024 10:14 AM EDT [facility] RBC 5.30 4.50 - 5.50 M/mcL LAB HEMETOLOGY METHOD 11/23/2024 10:14 AM EDT [facility] Hemoglobin 15.2 13.5 - 17.5 g/dL LAB HEMETOLOGY METHOD 11/23/2024 10:14 AM EDT [facility] Hematocrit 45.0 42.0 - 54.0 % LAB HEMETOLOGY METHOD 11/23/2024 10:14 AM EDT [facility] MCV 85.2 79.0 - 98.0 FL LAB HEMETOLOGY METHOD 11/23/2024 10:14 AM EDT [facility] MCH 28.8 27.0 - 32.0 pcg LAB HEMETOLOGY METHOD 11/23/2024 10:14 AM EDT [facility] MCHC 33.8 32.0 - 37.0 g/dL LAB HEMETOLOGY METHOD 11/23/2024 10:14 AM EDT [facility] RDW 13.8 11.0 - 15.0 % LAB HEMETOLOGY METHOD 11/23/2024 10:14 AM EDT [facility] Platelets 226 130 - 400 K/mcL LAB HEMETOLOGY METHOD 11/23/2024 10:14 AM EDT [facility] MPV 8.9 7.0 - 11.0 FL LAB HEMETOLOGY METHOD 11/23/2024 10:14 AM [facility] NRBC 0.0 <1.0 % LAB HEMETOLOGY METHOD 11/23/2024 10:14 AM [facility] NRBC Absolute 0.00 <0.10 K/mcL LAB HEMETOLOGY METHOD 11/23/2024 10:14 AM [facility] Neutrophils Relative 51.6 % LAB HEMETOLOGY METHOD 11/23/2024 10:14 AM [facility] Lymphocytes Relative 35.3 % LAB HEMETOLOGY METHOD 11/23/2024 10:14 AM [facility] Monocytes Relative 9.2 % LAB HEMETOLOGY METHOD 11/23/2024 10:14 AM [facility] Eosinophils Relative 2.6 % LAB HEMETOLOGY METHOD 11/23/2024 10:14 AM [facility] Basophils Relative 1.0 % LAB HEMETOLOGY METHOD 11/23/2024 10:14 AM [facility] Immature Granulocytes Relative 0.3 % LAB HEMETOLOGY METHOD 11/23/2024 10:14 AM [facility] Neutrophils Absolute 3.20 1.50 - 7.00 K/mcL LAB HEMETOLOGY METHOD 11/23/2024 10:14 AM [facility] Lymphocytes Absolute 2.19 1.00 - 5.00 K/mcL LAB HEMETOLOGY METHOD 11/23/2024 10:14 AM [facility] Monocytes Absolute 0.57 0.20 - 1.00 K/mcL LAB HEMETOLOGY METHOD 11/23/2024 10:14 AM [facility] Eosinophils Absolute 0.16 0.00 - 0.50 K/mcL LAB HEMETOLOGY METHOD 11/23/2024 10:14 AM [facility] Basophils Absolute 0.06 0.00 - 0.20 K/mcL LAB HEMETOLOGY METHOD 11/23/2024 10:14 AM EDT [facility] Immature Granulocytes Absolute 0.02 0.00 - 0.03 K/[facility] LAB HEMETOLOGY METHOD 11/23/2024 10:14 AM EDT [facility] Blood Venous blood specimen / Unknown Venipuncture / Unknown 11/23/2024 8:15 AM EDT 11/23/2024 8:15 AM EDT us Damon Jha MD LAB BLOOD ORDERABLES Final Resu lt [facility] [address] [place] [address], [place] [phone] * Testosterone, total (11/23/2024 8:15 AM EDT) Testosterone 392 229 - 902 ng/dL LAB CHEMISTRY METHOD 11/23/2024 2:12 PM EDT [facility] Blood Venous blood specimen / Unknown Venipuncture / Unknown 11/23/2024 8:15 AM EDT 11/23/2024 8:15 AM EDT us Damon Jha MD LAB BLOOD ORDERABLES Final Resu lt [facility] [address] [place] [address], [place] [phone] * Hemoglobin A1c (11/23/2024 8:15 AM EDT) Hemoglobin A1C 5.8 <6.5 % LAB CHEMISTRY METHOD 11/23/2024 11:29 AM EDT [facility] Mean Bld Glu Estim. 120 mg/dL LAB CHEMISTRY METHOD 11/23/2024 11:29 AM EDT [facility] Blood Venous blood specimen / Unknown Venipuncture / Unknown 11/23/2024 8:15 AM EDT 11/23/2024 8:15 AM EDT us Damon Jha MD LAB BLOOD ORDERABLES Final Resu lt [facility] [address] [place] [address], [place] [phone] * Comprehensive metabolic panel (11/23/2024 8:15 AM EDT) Sodium 140 133 - 145 mmol/L LAB CHEMISTRY METHOD 11/23/2024 12:22 PM [facility] Potassium 4.5 3.5 - 5.5 mmol/L LAB CHEMISTRY METHOD 11/23/2024 12:22 PM [facility] Chloride 106 96 - 110 mmol/L LAB CHEMISTRY METHOD 11/23/2024 12:22 PM [facility] CO2 30 21 - 32 mmol/L LAB CHEMISTRY METHOD 11/23/2024 12:22 PM [facility] Anion Gap 4 3 - 11 LAB CHEMISTRY METHOD 11/23/2024 12:22 PM [facility] Glucose 97 70 - 100 mg/dL LAB CHEMISTRY METHOD 11/23/2024 12:22 PM [facility] BUN 15 5 - 25 mg/dL LAB CHEMISTRY METHOD 11/23/2024 12:22 PM [facility] Creatinine 1.09 0.70 - 1.30 mg/dL LAB CHEMISTRY METHOD 11/23/2024 12:22 PM [facility] eGFR 83 >=60 mL/min/1. 73m2 LAB CHEMISTRY METHOD 11/23/2024 12:22 PM [facility] Comment:Calculation based on the??Chronic Kidney Disease Epidemiology Collaboration (CKD-EPI) equation refit??without adjustment for race. BUN/Creatinine Ratio 13.8 LAB CHEMISTRY METHOD 11/23/2024 12:22 PM [facility] Calcium 9.2 8.5 - 10.5 mg/dL LAB CHEMISTRY METHOD 11/23/2024 12:22 PM EDT [facility] AST (SGOT) 25 10 - 42 unit/L LAB CHEMISTRY METHOD 11/23/2024 12:22 PM [facility] ALT (SGPT) 44 10 - 60 unit/L LAB CHEMISTRY METHOD 11/23/2024 12:22 PM [facility] Alkaline Phosphatase 85 42 - 121 unit/L LAB CHEMISTRY METHOD 11/23/2024 12:22 PM [facility] Total Protein 7.1 6.0 - 8.0 g/dL LAB CHEMISTRY METHOD 11/23/2024 12:22 PM [facility] Albumin 4.0 3.2 - 5.0 g/dL LAB CHEMISTRY METHOD 11/23/2024 12:22 PM [facility] Total Bilirubin 0.6 0.0 - 1.4 mg/dL LAB CHEMISTRY METHOD 11/23/2024 12:22 PM [facility] Blood Venous blood specimen / Unknown Venipuncture / Unknown 11/23/2024 8:15 AM EDT 11/23/2024 8:15 AM EDT Damon Jha MD LAB BLOOD ORDERABLES Final Resu lt [facility] [address] [place] [address], * Colonoscopy (04/17/2020) Colonoscopy No interpretation , abstracted Anatomical Region Laterality Modality Other Historical Provider HEALTH MAINTENANCE Final Result from Last 3 Months or Most Recently Relevant to Health Maintenance Insurance [facility] on file Care Teams Scaffold Erector Relationship Specialty Start Date End Date Damon Jha MD [address] [place] [phone] PCP - General Internal Medicine 12/19/13
--- OUTSIDE RECORDS SUMMARY | 2025-01-14 15:17 | XMS_ITS | Continuity of Care Document ---
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 It does not include entries that were removed or entered in error. Problem Status Onset Date Problem Type Date of Resolution Comments Source Backache (ICD-9-CM 724.5) Active Condition [facility] Knee: arthralgia * (ICD-9-CM 719.46) Active Condition [facility] left knee medial meniscus teaar by MRI Active Condition [facility] Migraine, unspecified, without mention of Intractable Migraine without mention o Active Condition [facility] Overweight (ICD-9-CM 278.02) Active Condition [facility] Pain in joint involving lower leg (ICD-9-CM 719.46) Active Condition [facility] Tendinitis * (ICD-9-CM 726.90) Active Condition [facility] BACKACHE Inactive Condition [facility] pain in the leg (below the knee) Inactive Condition [facility] Medications Combined list of outpatient medications from Department of Defense and Veterans Affairs facilities.Medications provided include 1) outpatient medications from the last 15 months, and 2) patient-reported medications. Medication Details Route Status Patient Instructions Prescription Expires Prescription Number Last Dispense Date Ordering Provider Order Date Order Qty Source ADVAIR HFA (FLUTICASON E/SALMETERO L), 115-21MCG, HFA AER AD, INHALATION, GLAXOSMITHK LINE, 12 g CANISTER Cancele d [id number] : 2023 0 Pharmac y Data Transac tion Service Facilit y ADVAIR HFA (FLUTICASON E/SALMETERO L), 115-21MCG, HFA AER AD, INHALATION, GLAXOSMITHK LINE, 12 g CANISTER Active [id number] 2023 12 Pharmac y Data Transac tion Service Facilit y ADVAIR HFA (FLUTICASON E/SALMETERO L), 115-21MCG, HFA AER AD, INHALATION, GLAXOSMITHK LINE, 12 g CANISTER Active [id number] 2023 12 Pharmac y Data Transac tion Service Facilit y BUSPIRONE HCL (BUSPIRONE HCL), 5MG, TABLET, ORAL, TEVA [place], 100 ea. BOTTLE Active [id number] 4 2023 90 Pharmac y Data Transac tion Service Facilit y BUSPIRONE HCL (BUSPIRONE HCL), 5MG, TABLET, ORAL, TEVA [place], 100 ea. BOTTLE Active [id number] 2023 90 Pharmac y Data Transac tion Service Facilit y IBUPROFEN (ibuprofen) , 600 MG, TABLET, ORAL, CAPPTURES PHARMA, 500 ea. BOTTLE Active [id number] 4 2023 30 Pharmac y Data Transac tion Service Facilit y SERTRALINE HCL (SERTRALINE HCL), 50MG, TABLET, ORAL, AUROBINDO PHARM, 500 ea. BOTTLE Active [id number] 4 2023 90 Pharmac y Data Transac tion Service Facilit y Immunizations Combined list of available immunizations from the Department of Defense and Veterans Affairs facilities. Immunization Series Date Given Administered By Site Reaction Lot Number CVX Code Drug Bar Hostess Status Comments Source influenza, injectable, quadrivalent- pf 2022 VICTORIANO Farias ar, left (delt oid) [id number] complet ed influenza , injectabl e, quadrival ent-pf 05/16/23 Recorded 8344R-4 39 [facility] influenza, injectable, quadrivalent- pf 2021 [id number] 150 [facility] complet ed influenza , injectabl e, quadrival ent-pf 06/09/22 Given Ambulat ory Pharmac y SARS-CoV-2 (COVID-19) mRNA-Bivalent 2021 [id number] 229 complet ed SARS-CoV- 2 (COVID-19 ) mRNA-Biva lent 06/03/22 Given Ambulat ory Pharmac y COVID Vaccine Moderna 2020 [id number] 207 complet ed COVID Vaccine Moderna 07/27/21 Given Ambulat ory Pharmac y influenza, injectable, quadrivalent 2020 [id number] [facility] influenza , injectabl e, quadrival ent 05/20/21 Given Ambulat ory Pharmac y COVID Vaccine Moderna 2020 [id number] 207 complet ed COVID Vaccine Moderna 10/31/20 Given Ambulat ory Pharmac y COVID Vaccine Moderna 2020 [id number] 207 complet ed COVID Vaccine Moderna 09/29/20 Given Ambulat ory Pharmac y influenza, injectable, quadrivalent- pf 2019 [id number] 150 [employer] complet ed influenza , injectabl e, quadrival ent-pf 07/13/20 Given Ambulat ory Pharmac y influenza, injectable, quadrivalent- pf 2018 [id number] 150 [employer] complet ed influenza , injectabl e, quadrival ent-pf 07/13/19 Given Ambulat ory Pharmac y tetanus, diphtheria, acellular pertu is 2018 [id number] 115 sanofi pasteur complet ed tetanus, diphtheri a, acellular pertussis 05/11/19 Given Ambulat ory Pharmac y influenza, injectable, quadrivalent- pf 2017 [id number] 150 [employer] complet ed influenza , injectabl e, quadrival ent-pf 06/26/18 Given Ambulat ory Pharmac y influenza virus vaccine, inactivated 2016 [id number] [employer] complet ed influenza virus vaccine, inactivat ed 05/27/17 Given Ambulat ory Pharmac y influenza, seasonal, injectable-pf 2015 [id number] 140 [employer] complet ed influenza , seasonal, injectabl e-pf 07/09/16 Given Ambulat ory Pharmac y influenza, seasonal, injectable-pf 2014 [id number] 140 CSL [employer]ring complet ed influenza , seasonal, injectabl e-pf 06/08/15 Given Ambulat ory Pharmac y Influenza, injectable, MDCK-pf 2013 [id number] 153 Nov[employer]is [employer] complet ed Influenza , injectabl e, MDCK-pf 06/09/14 Given Ambulat ory Pharmac y FLU,3 YRS (HISTORICAL) 2012 88 complet ed [facility] Influenza, injectable, MDCK-pf 2012 [id number] 153 Nov[employer]is Pharm[employer] ls complet ed Influenza , injectabl e, MDCK-pf 07/01/13 Given Ambulat ory Pharmac y influenza, seasonal, injectable-pf 2011 [id number] 140 CSL Behring complet ed influenza , seasonal, injectabl e-pf 06/18/12 Given Ambulat ory Pharmac y FLU,3 YRS (HISTORICAL) 2011 88 complet ed [facility] influenza virus vaccine, live 2010 [id number] 111 [employer] Inc comple t ed influenza virus vaccine, live 07/11/11 Given Ambulat ory Pharmac y FLU,3 YRS (HISTORICAL) 2010 88 [facility] influenza virus vaccine, live 2009 [id number] 111 [employer] Inc comple t ed influenza virus vaccine, live 07/11/10 Given Ambulat ory Pharmac y Novel influenza-H1N 1-09, injectable 2009 [id number] 127 Novartis Pharm[employer] ls complet ed Novel influenza -[id number], injectabl e 10/12/09 Given Ambulat ory Pharmac y influenza virus vaccine, live 2008 [id number] 111 [employer] Inc comple t ed influenza virus vaccine, live 06/08/09 Given Ambulat ory Pharmac y tetanus, diphtheria, acellular pertu is 2008 [id number] 115 sanofi pasteur complet ed tetanus, diphtheri a, acellular pertussis 05/17/09 Given Ambulat ory Pharmac y anthrax vaccine 2007 [id number] 24 [employer] complet ed anthrax vaccine 08/10/08 Given Ambulat ory Pharmac y typhoid Vi capsular polysaccharid e vac 2007 [id number] 101 sanofi pasteur complet ed typhoid Vi capsular polysacch aride vac 07/07/08 Given Ambulat ory Pharmac y influenza virus vaccine,split 2007 [id number] 15 GlaxoSmithKli ne complet ed influenza virus vaccine,s plit 07/07/08 Given Ambulat ory Pharmac y anthrax vaccine 2006 [id number] [employer] complet ed anthrax vaccine 08/05/07 Given Ambulat ory Pharmac y influenza virus vaccine,split 2006 [id number] 15 GlaxoSmithKli ne complet ed influenza virus vaccine,s plit 07/08/07 Given Ambulat ory Pharmac y anthrax vaccine 2006 [id number] [employer] complet ed anthrax vaccine 02/17/07 Given Ambulat ory Pharmac y anthrax vaccine 2006 [id number] [employer] complet ed anthrax vaccine 02/03/07 Given Ambulat ory Pharmac y yellow fever vaccine 2006 37 [employer] complet ed yellow fever vaccine 01/24/07 Given Ambulat ory Pharmac y anthrax vaccine 2006 [id number] 24 [employer] complet ed anthrax vaccine 01/16/07 Given Ambulat ory Pharmac y meningococcal polysaccharid e (MPSV4) 2006 32 [employer] complet ed meningoco ccal polysacch aride (MPSV4) 01/16/07 Given Ambulat ory Pharmac y TD(ADULT) UNSPECIFIED FORMULATION 2006 139 complet ed [facility] influenza virus vaccine,split 2005 [id number] 15 Unknown complet ed influenza virus vaccine,s plit 08/06/06 Given Ambulat ory Pharmac y typhoid vaccine, inactivated 2005 [id number] 101 sanofi pasteur complet ed typhoid vaccine, inactivat ed 08/06/06 Given Ambulat ory Pharmac y influenza virus vaccine,split 2004 [id number] 15 sanofi pasteur complet ed influenza virus vaccine,s plit 08/13/05 Given Ambulat ory Pharmac y influenza virus vaccine, live 2004 [id number] 111 [employer] comple t ed influenza virus vaccine, live 09/14/04 Given Ambulat ory Pharmac y typhoid vaccine, inactivated 2003 [id number] 101 sanofi pasteur complet ed typhoid vaccine, inactivat ed 03/10/04 Given Ambulat ory Pharmac y influenza virus vaccine, whole virus 2002 [id number] 16 sanofi pasteur complet ed influenza virus vaccine, whole virus 07/24/03 Given Ambulat ory Pharmac y hepatitis B adult vaccine 2002 [id number] 43 [employer] Inc complet ed hepatitis B adult vaccine 12/27/02 Given Ambulat ory Pharmac y influenza virus vaccine, whole virus 2001 [id number] 16 sanofi pasteur complet ed influenza virus vaccine, whole virus 08/09/02 Given Ambulat ory Pharmac y hepatitis B adult vaccine 2001 [id number] 43 [employer] complet ed hepatitis B adult vaccine 04/05/02 Given Ambulat ory Pharmac y hepatitis A adult vaccine 2001 [id number] 52 [employer] complet ed hepatitis A adult vaccine 02/28/02 Given Ambulat ory Pharmac y hepatitis B adult vaccine 2001 [id number] 43 [employer] complet ed hepatitis B adult vaccine 02/28/02 Given Ambulat ory Pharmac y influenza virus vaccine, whole virus 2000 [id number] 16 sanofi pasteur complet ed influenza virus vaccine, whole virus 07/26/01 Given Ambulat ory Pharmac y hepatitis A adult vaccine 2000 [id number] 52 [employer]ck [employer] Inc complet ed hepatitis A adult vaccine 06/26/01 Given Ambulat ory Pharmac y influenza virus vaccine, whole virus [id number] 16 [facility] complet ed influenza virus vaccine, whole virus 07/02/99 Given Ambulat ory Pharmac y poliovirus vaccine, live, oral 1998 02 complet ed polioviru s vaccine, live, oral 05/15/99 Given Ambulat ory Pharmac y tetanus-dipht h toxoids (Td) adult/adol 1998 09 complet ed tetanus-d iphth toxoids (Td) adult/ado l 05/08/99 Given Ambulat ory Pharmac y meningococcal polysaccharid e (MPSV4) 1998 32 complet ed meningoco ccal polysacch aride (MPSV4) 05/08/99 Given Ambulat ory Pharmac y tuberculin purified protein derivative 1998 96 complet ed tuberculi n purified protein derivativ e 05/08/99 Given Ambulat ory Pharmac y Results Combined list of recent chemistry, hematology and other laboratory results from Department of Defense and Veterans Affairs, ranging from 15 months to all on record, depending upon the facility. Order Name Results Value Reference Range Date Interpretation Specimen Comments Source Infectiou s Disease HIV-1/O/2 Non-Reac tive 1 (03/29/24 9:43 AM) 03/29 N Interpretiv e Data: INTERPRETAT ION: This method is a screening procedure for the detection of HIV p24 Antigen and Antibodies to HIV-1, including Group O, and/or HIV-2. NON-REACTIV E: HIV-1 antigen and HIV-1 / HIV-2 antibodies were not detected. No laboratory evidence of HIV infection. A negative test result does not exclude the possibility of exposure to or infection with HIV. HIV antibodies and/or p24 antigen may be undetectabl e in some stages of the infection and in some clinical conditions. If acute HIV infection is suspected, consider submitting another specimen to a reference laboratory for HIV-1 RNA. SCREEN REACTIVE - CONFIRMATIO N TO FOLLOW: Possible presence of HIV-1antibo dies, HIV-2 antibodies and/or HIV-1 p24 antigen. Specimen will reflex to the confirmatio n testing that fulfills the Center for Disease Control and Prevention' s HIV diagnostic algorithm. Refer to [facility] Lab Guide for additional information : [email or web address], [email or web address] x Testing performed by Tam hernandez [id number] [facility] Miscellan eous Sendouts Repository Sample Received (03/29/24 9:43 AM) 03/29 N [id number] Encounters Combined list of: 1) Encounters from Department of Veterans Affairs facilities going backup to the last 18 months, not all [facility] inpatient encounters are included; 2) Encounters from the Department of Defense facilities going backup to 280 months. Location Location Details Encounter Type Encounter Number Reason For Visit Attending Provider ADM Date DC Date Status Disposition Source [facility] Facility OUTPATIENT [id number] 10/16 Released w/o Limitations Theater Facilit y [facility] Facility OUTPATIENT [id number] 12/18 Released w/o Limitations Theater Facilit y 8344R-439 AMDS Between Visit [id number] 05/28 Discharge Disposition: Home or Self Care 8344R-4 39 AMDS 8344R-439 AMDS Outpatient [id number] BRITTANY TRAN 05/30 Discharge Disposition: Home or Self Care 8344R-4 39 AMDS 8344R-439 AMDS Between Visit [id number] 05/30 Discharge Disposition: Home or Self Care 8344R-4 39 AMDS 8344R-439 AMDS Between Visit [id number] 11/15 Discharge Disposition: Home or Self Care 8344R-4 39 AMDS 8344R-439 AMDS Between Visit [id number] 11/15 Discharge Disposition: Home or Self Care 8344R-4 39 AMDS Procedures Combined list of: 1) Procedures from Department of Veterans Affairs facilities going back up to thelast 18 months, not all [place] non-surgical procedures are included; 2) All procedures from the Department of Defense facilities. Procedure Procedure Type Code Date Perfomer Comments Sourc e No data available for this section Ambulatory P harmacy Social History Combined list of available smoking, tobacco, and other social history from Department of Defense and Veterans Affairs facilities. Social History Type Response Date Comment Sourc e Sex Representation Male (finding) 09/16/2022 Un known Organization Tobacco smoking status NHIS LIFETIME NON-TOBACCO USER 03/02/2012 [facility] This section is an empty social history section. DoD Sexual Orientation Ambula tory Pharmacy Gender identity Ambulator y Pharmacy Assessment and Plan Combined list of future care activities from Department of Defense and Veterans Affairs facilities (e.g., assessment and plan notes, appointments, orders, and referrals). Additional future care activities may be listed in the Plan of Care section. Result Assessment and Plan Date Source Assessment and Plan No data available for this section 01/14/2025 Ambulatory Pharmacy Functional Status Combined list of recent functional and cognitive assessments recorded at [facility] ([place] Functional Willacy Measurement (FIM) Scale: 1 = Total Assistance (Subject = 0% +), 2 = Maximal Assistance (Subject = 25% +), 3 = Moderate Assistance (Subject = 50% +), 4 = Minimal Assistance (Subject = 75% +), 5 = Supervision, 6 = Modified Willacy (Device), 7 = Complete Willacy (Timely, Safely). Assessment Date/Time Source Assessment Type Assessment Skill Assessment Score Assessment Details No data available for this section
[2025-01-14 17:12] LABS: Erythrocyte Sedimentation Rate 6 MM/HR (0-15)
[2025-01-15 09:38] LABS: Lyme Abs Screen <0.90 index
[2025-01-17 19:28] LABS: Babesia IgG <1:64 titer (<1:64); Babesia IgM <1:20 titer (<1:20)
[2025-01-17 22:24] LABS: Treponema pallidum Ab FTA ABS Nonreactive (Nonreactive)
== END 2025-01-14 15:12 | disposition home or self-care (01) ==
LOC: HO.LAB 15:11
PROVIDERS: PCP Internal Medicine; Visit Provider Psychiatry & Neurology Neurology
DX: G43.909 Migraine, unspecified, not intractable, without status migrainosus (principal)
CPT/HCPCS: 36415; 85652; 86617; 86618; 86753; 86780

== ENCOUNTER → 2025-02-12 13:17 | Outpatient (BNV) | payer OTHER, SELFPAY | PROVIDERS: PCP Internal Medicine; Visit Provider Radiology Diagnostic Radiology | DX: G43.009 Migraine without aura, not intractable, without status migrainosus (principal) | CPT/HCPCS: 70553 ==

== ENCOUNTER 2025-02-12 13:57 | Outpatient (REF) | payer OTHER, SELFPAY ==
--- NOTE | ~2025-02-12 | MR_ITS ---
EXAMINATION: MR BRAIN WITHOUT THEN WITH IV CONTRAST HISTORY: MIGRAINE W/O AURA TECHNIQUE: Sagittal T1, and axial T1, FLAIR, T2, gradient echo, and diffusion weighted MR images of the brain were obtained. Subsequently, axial, and coronal T1-weighted images were obtained after the administration of intravenous gadolinium. 10 mL Gadavist was administered. COMPARISON: There are no prior studies available for comparison. FINDINGS: The brain parenchyma is unremarkable, demonstrating normal larose/white differentiation. No foci of abnormal signal intensity are identified. The ventricular system is normal in size and configuration. There is no mass effect or midline shift. No intra or extra-axial fluid collections are identified. There are no foci of restricted diffusion. There is no abnormal contrast enhancement. Normal vascular flow voids are noted in the basilar and carotid arteries. The visualized paranasal sinuses are clear. MR/MR head/brain wo/w con IMPRESSION: Unremarkable MRI of the brain without and with contrast. Electronically signed by: Samuel Guerra MD 02/13/2025 07:42 AM EDT
[2025-02-12] MEDS: gadobutroL 10 ML VIAL IVPUSH (14:42)
--- OUTSIDE RECORDS SUMMARY | 2025-02-12 16:39 | XMS_ITS | Continuity of Care Document ---
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 It does not include entries that were removed or entered in error. Problem Status Onset Date Problem Type Date of Resolution Comments Source BACKACHE Inactive Condition DoD pain in the leg (below the knee) Inactive Condition DoD Backache (ICD-9-CM 724.5) Active Condition [facility] [...] involving lower leg (ICD-9-CM 719.46) Active Condition [facility] S Tendinitis * (ICD-9-CM 726.90) Active Condition [facility] S Medications Combined list of outpatient medications from [...] GLAXOSMITHK LINE, 12 g CANISTER Cancele d [id number] : 2023 0 Pharmac y Data Transac tion Service Facilit y ADVAIR HFA (FLUTICASON E/SALMETERO L), 115-21MCG, HFA AER AD, INHALATION, GLAXOSMITHK LINE, 12 g CANISTER Active [id number] 4 2023 12 Pharmac y Data Transac tion Service Facilit y BUSPIRONE HCL (BUSPIRONE HCL), 5MG, TABLET, ORAL, TEVA [place], 100 ea. BOTTLE Active [id number] 4 2023 90 Pharmac y Data Transac tion Service Facilit y BUSPIRONE HCL (BUSPIRONE HCL), 5MG, TABLET, ORAL, TEVA [place], 100 ea. BOTTLE Active [id number] 4 2023 90 Pharmac y Data Transac tion Service Facilit y IBUPROFEN (ibuprofen) , 600 MG, TABLET, ORAL, SpanDeXS PHARMA, 500 ea. BOTTLE Active [id number] 4 2023 30 Pharmac y Data Transac tion Service Facilit y SERTRALINE HCL (SERTRALINE HCL), 50MG, TABLET, ORAL, AUROBINDO PHARM, 500 ea. BOTTLE Active [id number] 4 2023 90 Pharmac y Data Transac tion Service Facilit y Immunizations Combined list of available immunizations from the Department of Defense and Veterans Affairs facilities. 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 Status Comments Source influenza, injectable, quadrivalent- pf 2022 VICTORIANO Farias ar, left (delt oid) [id number] complet ed influenza , injectabl e, quadrival ent-pf 05/16/23 Recorded 8344R-4 39 AMDS influenza, injectable, quadrivalent- pf 2021 [id number] 150 GlaxoSmithKli ne complet ed influenza , injectabl e, quadrival ent-pf 06/09/22 Given Ambulat ory Pharmac y SARS-CoV-2 (COVID-19) mRNA-Bivalent 2021 [id number] 229 complet ed SARS-CoV- 2 (COVID-19 ) mRNA-Biva lent 06/03/22 Given Ambulat ory Pharmac y COVID Vaccine Moderna 2020 [id number] 207 complet ed COVID Vaccine Moderna 07/27/21 Given Ambulat ory Pharmac y influenza, injectable, quadrivalent 2020 [id number] 158 GlaxoSmithKli ne complet ed influenza , injectabl e, quadrival ent 05/20/21 Given Ambulat ory Pharmac y COVID Vaccine Moderna 2020 [id number] 207 complet ed COVID Vaccine Moderna 10/31/20 Given Ambulat ory Pharmac y COVID Vaccine Moderna 2020 [id number] 207 complet ed COVID Vaccine Moderna 09/29/20 Given Ambulat ory Pharmac y influenza, injectable, quadrivalent- pf 2019 [id number] 150 Seqirus complet ed influenza , injectabl e, quadrival ent-pf 07/13/20 Given Ambulat ory Pharmac y influenza, injectable, quadrivalent- pf 2018 [id number] 150 Seqirus complet ed influenza , injectabl e, quadrival ent-pf 07/13/19 Given Ambulat ory Pharmac y tetanus, diphtheria, acellular pertu is 2018 [id number] 115 sanofi pasteur complet ed tetanus, diphtheri a, acellular pertussis 05/11/19 Given Ambulat ory Pharmac y influenza, injectable, quadrivalent- pf 2017 [id number] 150 Seqirus complet ed influenza , injectabl e, quadrival ent-pf 06/26/18 Given Ambulat ory Pharmac y influenza virus vaccine, inactivated 2016 [id number] 88 Seqirus complet ed influenza virus vaccine, inactivat ed 05/27/17 Given Ambulat ory Pharmac y influenza, seasonal, injectable-pf 2015 [id number] 140 Seqirus complet ed influenza , seasonal, injectabl e-pf 07/09/16 Given Ambulat ory Pharmac y influenza, seasonal, injectable-pf 2014 [id number] 140 CSL Behring complet ed influenza , seasonal, injectabl e-pf 06/08/15 Given Ambulat ory Pharmac y Influenza, injectable, MDCK-pf 2013 [id number] 153 Novartis Pharmaceutica ls complet ed Influenza , injectabl e, MDCK-pf 06/09/14 Given Ambulat ory Pharmac y FLU,3 YRS (HISTORICAL) 2012 88 complet ed [place] [facility] Influenza, injectable, MDCK-pf 2012 [id number] 153 Novartis Pharmaceutica ls complet ed Influenza , injectabl e, MDCK-pf 07/01/13 Given Ambulat ory Pharmac y influenza, seasonal, injectable-pf 2011 [id number] 140 CSL Behring complet ed influenza , seasonal, injectabl e-pf 06/18/12 Given Ambulat ory Pharmac y FLU,3 YRS (HISTORICAL) 2011 88 complet ed [place] [facility] influenza virus vaccine, live 2010 [id number] 111 Med[employer] Inc comple t ed influenza virus vaccine, live 07/11/11 Given Ambulat ory Pharmac y FLU,3 YRS (HISTORICAL) 2010 88 complet ed [facility] influenza virus vaccine, live 2009 [id number] 111 Med[employer] Inc comple t ed influenza virus vaccine, live 07/11/10 Given Ambulat ory Pharmac y Novel influenza-H1N 1-09, injectable 2009 [id number] 127 Novartis Pharmaceutica complet ed Novel influenza -[id number], injectabl e 10/12/09 Given Ambulat ory Pharmac y influenza virus vaccine, live 2008 [id number] 111 Medimmune Inc comple t ed influenza virus vaccine, live 06/08/09 Given Ambulat ory Pharmac y tetanus, diphtheria, acellular pertu is 2008 [id number] 115 sanofi pasteur complet ed tetanus, diphtheri a, acellular pertussis 05/17/09 Given Ambulat ory Pharmac y anthrax vaccine 2007 [id number] 24 [employer] complet ed anthrax vaccine 08/10/08 Given Ambulat ory Pharmac y typhoid Vi capsular polysaccharid e vac 2007 [id number] 101 sanofi pasteur complet ed typhoid Vi capsular polysacch aride vac 07/07/08 Given Ambulat ory Pharmac y influenza virus vaccine,split 2007 [id number] 15 GlaxoSmithKli ne complet ed influenza virus vaccine,s plit 07/07/08 Given Ambulat ory Pharmac y anthrax vaccine 2006 [id number] 24 [employer] complet ed anthrax vaccine 08/05/07 Given Ambulat ory Pharmac y influenza virus vaccine,split 2006 [id number] 15 GlaxoSmithKli ne complet ed influenza virus vaccine,s plit 07/08/07 Given Ambulat ory Pharmac y anthrax vaccine 2006 [id number] 24 [employer] complet ed anthrax vaccine 02/17/07 Given Ambulat ory Pharmac y anthrax vaccine 2006 [id number] 24 [employer] complet ed anthrax vaccine 02/03/07 Given Ambulat ory Pharmac y yellow fever vaccine 2006 37 [employer] complet ed yellow fever vaccine 01/24/07 Given Ambulat ory Pharmac y anthrax vaccine 2006 [id number] 24 [employer] complet ed anthrax vaccine 01/16/07 Given Ambulat ory Pharmac y meningococcal polysaccharid e (MPSV4) 2006 32 [employer] complet ed meningoco ccal polysacch aride (MPSV4) 01/16/07 Given Ambulat ory Pharmac y TD(ADULT) UNSPECIFIED FORMULATION 2006 139 complet ed [facility] influenza virus vaccine,split 2005 [id number] 15 Unknown complet ed influenza virus vaccine,s plit 08/06/06 Given Ambulat ory Pharmac y typhoid vaccine, inactivated 2005 [id number] 101 sanofi pasteur complet ed typhoid vaccine, inactivat ed 08/06/06 Given Ambulat ory Pharmac y influenza virus vaccine,split 2004 [id number] 15 sanofi pasteur complet ed influenza virus vaccine,s plit 08/13/05 Given Ambulat ory Pharmac y influenza virus vaccine, live 2004 [id number] 111 [employer] comple t ed influenza virus vaccine, live 09/14/04 Given Ambulat ory Pharmac y typhoid vaccine, inactivated 2003 [id number] 101 sanofi pasteur complet ed typhoid vaccine, inactivat ed 03/10/04 Given Ambulat ory Pharmac y influenza virus vaccine, whole virus 2002 [id number] 16 sanofi pasteur complet ed influenza virus vaccine, whole virus 07/24/03 Given Ambulat ory Pharmac y hepatitis B adult vaccine 2002 [id number] 43 Merck & Company Inc complet ed hepatitis B adult vaccine 12/27/02 Given Ambulat ory Pharmac y influenza virus vaccine, whole virus 2001 [id number] 16 sanofi pasteur complet ed influenza virus [...] y influenza virus vaccine, whole virus 2000 [id number] 16 sanofi pasteur complet ed influenza virus vaccine, whole virus 07/26/01 Given Ambulat ory Pharmac y hepatitis A adult vaccine 2000 [id number] Merck & Company Inc complet ed hepatitis A adult vaccine 06/26/01 Given Ambulat ory Pharmac y influenza virus vaccine, whole virus [id number] [employer] complet ed influenza virus vaccine, whole virus [...] Prevention' s HIV diagnostic algorithm. Refer to [facility] Lab Guide for additional information : [email or web address] x Testing performed by [employer] andriy costello. [id number] SAFSAthe grafter EPILAB Miscellan eous Sendouts Repository Sample Received [...] Date Status Disposition Source Theater Facility OUTPATIENT [id number] 10/16 Released w/o Limitations Theater Facilit y Theater Facility OUTPATIENT [id number] 12/18 Released w/o Limitations Theater Facilit y 8344R-439 AMDS Between Visit [id number] 05/28 Discharge Disposition: Home or Self Care 8344R-4 39 AMDS 8344R-439 AMDS Outpatient [id number] BRITTANY MARC 05/30 Discharge Disposition: Home or Self Care 8344R-4 39 AMDS 8344R-439 AMDS Between Visit [id number] 05/30 Discharge Disposition: Home or Self Care 8344R-4 39 AMDS 8344R-439 AMDS Between Visit [id number] 11/15 Discharge Disposition: Home or Self Care 8344R-4 39 AMDS 8344R-439 AMDS Between Visit [id number] 11/15 Discharge Disposition: Home or Self Care 8344R-4 39 AMDS Procedures Combined list of: 1) Procedures from [facility] facilities [facility], not all [place] non-surgical procedures are included; 2) All procedures from the Department of [facility] facilities. Procedure Procedure Type Code Date Perfomer Comments Sourc e No data available for this section Ambulatory P harmacy Social History Combined list of available smoking, tobacco, and other social history from Department of Defense and Veterans Affairs facilities. Social History Type Response Date Comment Sourc e Sex Representation Male (finding) 09/16/2022 Un known Organization Tobacco smoking status NHIS LIFETIME NON-TOBACCO USER 03/02/2012 [facility] Sexual Orientation Ambula tory Pharmacy Gender identity Ambulator y Pharmacy This section is an empty social history section. DoD Assessment and Plan Combined list of future care activities from Department of Defense and Veterans Affairs facilities (e.g., assessment and plan notes, appointments, orders, and referrals). Additional future care activities may be listed in the Plan of Care section. Result Assessment and Plan Date Source Assessment and Plan No data available for this section 02/12/2025 Ambulatory Pharmacy Functional Status Combined list of recent functional and cognitive assessments recorded at [facility] Functional [place] Measurement (FIM) Scale: 1 = Total Assistance (Subject = 0% +), 2 = Maximal Assistance (Subject = 25% +), 3 = Moderate Assistance (Subject = 50% +), 4 = Minimal Assistance (Subject = 75% +), 5 = Supervision, 6 = Modified Clayton (Device), 7 = Complete Clayton (Timely, Safely). Assessment Date/Time Source Assessment Type Assessment Skill Assessment Score Assessment Details No data available for this section
== END 2025-02-12 13:58 | disposition home or self-care (01) ==
LOC: HO.MRI 13:57
PROVIDERS: PCP Internal Medicine; Visit Provider Psychiatry & Neurology Neurology
DX: G43.009 Migraine without aura, not intractable, without status migrainosus (principal)
CPT/HCPCS: 70553; A9585